=== PATIENT | male | born 1975 | race African-American/Black ===

== ENCOUNTER 2020-05-10 20:49 | Emergency (ER) | payer SELFPAY ==
[~2020-05-10] VITALS: Ht 182.9 cm; Wt 113.6 kg
--- NOTE | 2020-05-10 21:06 | PHYS DOC ---
General Adult EDM: Chief Complaint: UPPER EXTREMITY INJURY HPI: HPI: Patient is a 44 year old man with history of hypertension, high cholesterol, who presents the ED today complaining of mild intermittent left elbow pain that began a couple minutes prior to coming to the ED. Patient states he was at work and a 12 foot ladder accidentally fell on his left elbow. Patient states the pain is worse on range of motion. Denies anything relieving his pain. Review of Systems: Review of Systems: Constitutional: Denies fever or chills. [] Musculoskeletal: Reports left elbow pain Integument: Denies rash. [] Neurologic: Denies headache, focal weakness or sensory changes. [] Psychiatric: Denies depression or anxiety. [] Heart Score: Risk Factors: Risk Factors: DM, Current or recent (<one month) smoker, HTN, HLP, family history of CAD, obesity. Risk Scores: Score 0 - 3: 2.5% MACE over next 6 weeks - Discharge Home Score 4 - 6: 20.3% MACE over next 6 weeks - Admit for Clinical Observation Score 7 - 10: 72.7% MACE over next 6 weeks - Early Invasive Strategies Physical Exam: PE: Constitutional: Well developed, well nourished, no acute distress, non-toxic appearance. [] Skin: Warm, dry, no erythema, no rash. [] Back: No tenderness, no CVA tenderness. [] Extremities: Left lateral elbow with small amount of bruising. Tenderness on palpation of the left lateral elbow. Full range of motion to the left elbow including flexion and extension of the left elbow. Plantarflexion and dorsiflexion of the left forearm. Full range of motion to the left fingers. Adequate radial, medial, ulnar sensation to the left upper extremity. +2 left radial pulse. Cap refill less than 2 seconds in left fingers. Neurologic: Alert and oriented X 3, normal motor function, normal sensory function, no focal deficits noted. [] Psychologic: Affect normal, judgement normal, mood normal. [] EKG: EKG: [] Radiology/Procedures: Radiology/Procedures: []PROCEDURE: ELBOW LEFT 3V Exam: Left elbow 3 views INDICATION: Pain, trauma TECHNIQUE: Frontal, lateral and oblique views of the left elbow Comparisons: None FINDINGS: Bone mineralization is normal. No acute or healed fractures. Soft tissues are unremarkable. Joint spaces are well-maintained. IMPRESSION: No acute osseous abnormality. Electronically signed by: Shasta Soria MD (05/10/2020 9:41 PM) [id number] DICTATED and SIGNED BY: SHASTA SORIA MD DATE: 05/10/202140 Course & Med Decision Making: Course & Med Decision Making Pertinent Labs and Imaging studies reviewed. (See chart for details) This is a 44-year-old male patient presenting to the ED today with left elbow pain after ladder fell on it. Left elbow xrays interpreted by radiologist are negative for any acute findings. Ice elevation encouraged. OTC pain relievers. Follow-up with PCP orthopedic doctor in 1 to 2 weeks if pain persist Dragon Disclaimer: Dragon Disclaimer: This electronic medical record was generated, in whole or in part, using a voice recognition dictation system. Departure Departure Impression: Primary Impression: Left elbow contusion Qualified Codes: S50.02XA - Contusion of left elbow, initial encounter Disposition: 01 DC HOME SELF CARE/HOMELESS Condition: STABLE Referrals: NELSON HENDERSON MD follow up in 1-2 weeks Patient Instructions: Contusion, [id number] Additional Instructions: You have left elbow contusion, your left elbow x-rays are negative for any acute findings. Try to ice and elevate the extremity. You can take Tylenol or Motrin for pain. Follow-up with your own doctor or the provided doctor in 1 to 2 weeks JUMANA KELSEY APRN May 10, 2020 21:06
--- NOTE | 2020-05-10 21:44 | RAD ---
Exam: Left elbow 3 views INDICATION: Pain, trauma TECHNIQUE: Frontal, lateral and oblique views of the left elbow Comparisons: None FINDINGS: Bone mineralization is normal. No acute or healed fractures. Soft tissues are unremarkable. Joint spaces are well-maintained. IMPRESSION: No acute osseous abnormality. Electronically signed by: Katie Tejada MD (05/10/2020 9:41 PM) [id number]
[2020-05-10 22:15] VITALS: BP 146/60
== END 2020-05-10 22:15 | disposition home or self-care (01) ==
LOC: ER 20:49
DX: M25.522 Pain in left elbow (principal); G89.11 Acute pain due to trauma; I10 Essential (primary) hypertension; E78.00 Pure hypercholesterolemia, unspecified; W20.8XXA Other cause of strike by thrown, projected or falling object, initial encounter; Y93.89 Activity, other specified; Y92.89 Other specified places as the place of occurrence of the external cause; Y99.8 Other external cause status
CPT/HCPCS: 73080; 99283